=== PATIENT | female | born 1995 | race Caucasian/White ===

== ENCOUNTER 2017-09-26 22:26 | Emergency (ER) | payer BC ==
[~2017-09-26] VITALS: Ht 167.6 cm; Wt 85.6 kg
[~2017-09-26 22:26] MED LIST: VANCOCIN HCL125 MG PO
[2017-09-26 23:39] LABS: HEMATOCRIT 39.3 % (36.0-46.0); HEMOGLOBIN 13.5 G/DL (11.9-15.5); MCH 31.5 PG (29.0-34.0); MCHC 34.4 G/DL (30.0-36.0); MCV 91.8 FL (83-99); PLATELET COUNT 193 K/uL (156-360); RBC DIS.WIDTH-CV 12.5 % (11.8-14.6); RBC DIS.WIDTH-SD 41.9 % (39-53); RED BLOOD COUNT 4.28 M/uL (3.80-5.20)
[2017-09-26 23:47] LABS: CHLORIDE 107 mEq/L (99-109); POTASSIUM 3.9 mEq/L (3.7-5.4); SODIUM 138 mEq/L (136-147)
[2017-09-26 23:49] LABS: GLUCOSE 101 mg/dL (70-99)
[2017-09-26 23:53] LABS: CREATININE 0.9 mg/dL (0.6-1.3); GFR ESTIMATE (CALCULATED) > 59 mL/min/
[2017-09-26 23:54] LABS: UREA NITROGEN (BUN) 17 mg/dL (9-23)
[2017-09-27 00:01] LABS: QUANTITATIVE HCG < 4.0 MIU/ML
[2017-09-27 00:12] VITALS: BP 104/60
== END 2017-09-27 00:12 | disposition home or self-care (01) ==
LOC: EME 22:26
PROVIDERS: Physician Assistant
DX: A04.72 Enterocolitis due to Clostridium difficile, not specified as recurrent (principal)
CPT/HCPCS: 80048; 81003; 84702; 85027; 87493; 99281; 99283